=== PATIENT | female | born 1940 | race Caucasian/White ===

== ENCOUNTER → 2024-06-12 15:41 | Outpatient (REF) | payer MEDICARE, SELFPAY | LOC: PAVMRI 15:41 | PROVIDERS: ATTENDING PHYSICIAN Internal Medicine | DX: G89.29 Other chronic pain (principal); M54.40 Lumbago with sciatica, unspecified side; M51.26 Other intervertebral disc displacement, lumbar region; M48.061 Spinal stenosis, lumbar region without neurogenic claudication | CPT/HCPCS: 72148 ==

== ENCOUNTER → 2024-07-11 12:41 | Outpatient (REF) | payer MEDICARE, SELFPAY | LOC: PAVMRI 12:41 | PROVIDERS: ATTENDING PHYSICIAN Specialist; FAMILY PHYSICIAN Internal Medicine | DX: M54.12 Radiculopathy, cervical region (principal) | CPT/HCPCS: 72141 ==

== ENCOUNTER 2025-09-25 12:02 | Emergency (ER) | payer MEDICARE, SELFPAY ==
[2025-09-25 12:13] VITALS: BP 144/89
[2025-09-25 14:50] VITALS: BP 138/61
--- NOTE | 2025-09-25 15:03 | ED.GENMED ---
History of Present Illness
General
Chief Complaint: Fall
Source: patient
Time Seen by Provider: 09/25/25 13:41
History of Present Illness
History of Present Illness:
85-year-old female presents to the emergency room for evaluation after suffering a fall. Patient states she has spinal stenosis which makes it difficult for her to ambulate. She typically uses a walker or rollator. She has had 2 falls recently.
About 5 days ago she fell when the rollator fell over while she was getting up. She has pain on the right side from this fall including right lateral chest, right shoulder and right head. She had a fall earlier today where she slid down off of the
edge of the bed. No loss of consciousness with these falls. She does not take any oral anticoagulants. Patient lives in an apartment and has caregivers come to her 3 days a week. Her resides in a half-way. She is contemplated in
assisted living but feels she would not be able to take advantage of much of the things they offer there. She does not believe she requires the level of care of a half-way. She believes her current living situation is most appropriate for her.
Phy Exam
Physical Exam
Physical Exam:
General: Awake, Alert, Oriented X3. No acute distress.
Vitals: unremarkable
Head: Atraumatic
Eyes: Pupils equal, EOMI
Throat: Airway intact, no exudates
Neck: Trachea midline, but diffusely tender to palpation, no point tenderness
Lungs: Clear and equal b/l
Heart: Regular rate, no murmurs
Abd: Soft, Nontender, No pulsatile mass
Neuro: No focal weakness
Skin: Warm, dry, no rash
Extremities: pulses equal b/l, no edema. Ecchymosis noted right shoulder. Full range of motion of the shoulder. Patient has some diffuse tenderness along the right lateral chest wall. No point tenderness. No subcutaneous emphysema.
Course
Orders/Labs/Results
Orders:
Orders
09/25/25 12:19
CT Cervical Spine W/o Iv Contr Urgent
Comment:
Reason For Exam: fall, right sided head strike, neck soreness
CT Head W/o Iv Contrast Urgent
Comment:
Reason For Exam: fall right sided head strike
Ribs, Right 3 View W/PA Chest [CR Ribs-right 3 Vw W/pa Chest*] Urgent
Comment:
Reason For Exam: fall, right rib pain
09/25/25 15:00
Case Management Consult ONCE
Case Management Consult: Discharge Planning
09/25/25 15:11
Physical Therapy Consult [Pt Eval And Treat] Urgent
Activity Level: As Tolerated
Vital Signs
Initial and Last Documented VS:
Initial Vital Signs
Temp Pulse Resp BP Pulse Ox
98.3 F 98 18 144/89 96
09/25/25 12:13 09/25/25 12:13 09/25/25 12:13 09/25/25 12:13 09/25/25 12:13
Last Documented Vital Signs
Temp Pulse Resp BP Pulse Ox
98.3 F 89 16 137/78 98
09/25/25 12:13 09/25/25 16:04 09/25/25 16:04 09/25/25 16:04 09/25/25 16:04
MDM/Problems Addressed
Differential Diagnosis Includes:
Closed head injury, rib fracture, pneumothorax, contusion
MDM/Problems Addressed:
Patient presents with right sided pain after a couple falls recently. Patient has a history of mental stenosis making it very difficult for get around. Patient was evaluated by case management. She declines any permanent type placement. We were
able to arrange for visiting nurses and home PT. There is no injury which would preclude her from being discharged home.
*Radiology
Radiology exam reviewed: radiology read reviewed
*Pulse Oximetry
SaO2: 94
Oxygen Mode of Delivery: Room air
Patient hypoxic: no
*Critical Care Note
Total Time (30-74mins, 75-104mins- exclusive of procedures): Not Applicable
Patient Management
Social determinants of health affecting care: Living situation
ED Attending Note
-
Portions of this chart may have been created with voice recognition software.� Occasional wrong word or��sound alike� substitutions may have occurred due to the inherent limitations of voice recognition software.
Discharge Plan
Departure
Patient Disposition: Home (Routine Discharge)
Date of Disposition: 09/25/25
Time of Disposition: 15:52
Patient with high blood pressure during this ER visit?: Yes
Condition: Good
Discharge Problem:
Fall, Chest wall contusion, Spinal stenosis
Instructions: Head Injury in Adults (DC), Contusion (DC), Preventing falls in adults
Prescriptions:
No Action
levothyroxine 100 MCG tablet
100 mcg PO DAILY AT 0700
atenolol 50 MG tablet
75 mg PO DAILY
Patient Comments:
pt takes one and a half pills.
alprazolam 0.25 MG tablet
0.25 mg PO HSPRN PRN (Reason: sleeping)
Patient Comments:
for sleeping
fluoxetine [Prozac] 40 MG capsule
40 mg PO DAILY
fluoxetine 20 MG capsule
20 mg PO DAILY
fluocinolone acetonide oil [DermOtic Oil] 20 ML drops
1 drp RIGHT EAR PRN PRN (Reason: irritation)
esomeprazole magnesium [Nexium] 20 MG capsule,delayed release(DR/EC)
20 mg PO DAILY
omeprazole magnesium [Prilosec OTC] 20 mg Tablet,Delayed Release (Dr/Ec)
20 mg PO DAILY
atorvastatin [Lipitor] 10 mg Tablet
10 mg PO DAILY
mupirocin 2 % ointment
1 applic topical BID Qty: 1 0RF
Patient Comments:
last dose was this am, 04/21/23
aspirin 325 mg tablet
325 mg PO DAILY Qty: 1 0RF
Rx Instructions:
Take with food
docusate sodium [Colace] 100 mg capsule
100 mg PO BID Qty: 1 0RF
meloxicam 15 mg tablet
15 mg PO DAILY Qty: 14 0RF
Rx Instructions:
take with food
post-op
magnesium hydroxide [Milk of Magnesia] 400 mg/5 mL suspension
30 ml PO HS PRN (Reason: Constipation) Qty: 1 0RF
gabapentin 300 mg capsule
300 mg PO HS Qty: 10 0RF
sennosides [Senokot] 8.6 mg tablet
17.2 mg PO BID Qty: 2 0RF
oxycodone 5 mg tablet
5 - 10 mg PO Q6HPRN PRN (Reason: 1 tab moderate-2 tabs severe pain) Qty: 30 0RF
Rx Instructions:
Dx surgery
ongoing therapy
Post-op use
acetaminophen [Tylenol] 325 mg capsule
650 mg PO QID Qty: 2 0RF
Referrals:
Iraj Moran MD [Family Provider, Otology]
Interventions
Interventions:
*Risk Screen - Suicide Last Done: 09/25/25 12:13
*General Assessment Last Done: 09/25/25 12:13
*Neglect/Abuse Screening Last Done: 09/25/25 12:18
*ED COVID-19 Vaccine History Last Done: 09/25/25 16:04
*ED Influenza Vaccine History Last Done: 09/25/25 16:04
[facility] Fall Risk Assessment Tool Last Done: 09/25/25 16:04
*Nursing Disposition Last Done: 09/25/25 16:04
ED-Musculoskeletal Assessment Last Done: 09/25/25 16:04
ED- Neurological Assessment Last Done: 09/25/25 16:04
ED-Skin Assessment Last Done: 09/25/25 16:04
Discharge Date and Time
Discharge Date/Time: 09/25/25 16:04
Print Language: HEBREW
[2025-09-25 16:04] VITALS: BP 137/78
--- NOTE | 2025-09-26 08:26 | VNURNOTE ---
Chart reviewed. [facility] will accept pt for homecare svc. Referral sent to [facility] via [employer].
== END 2025-09-25 16:04 | disposition home or self-care (01) ==
LOC: EMR 12:02
PROVIDERS: EMERGENCY PHYSICIAN Emergency Medicine; FAMILY PHYSICIAN Otolaryngology
DX: S20.211A Contusion of right front wall of thorax, initial encounter (principal); S40.011A Contusion of right shoulder, initial encounter; W06.XXXA Fall from bed, initial encounter; M48.00 Spinal stenosis, site unspecified
CPT/HCPCS: 99284; 70450; 71101; 72125

== ENCOUNTER 2025-10-08 15:22 | Inpatient (IN) | payer MEDICARE, SELFPAY ==
[2025-10-07] VITALS (10 sets, daily range): BP systolic 98–165; BP diastolic 66–86; PULSE 67; O2SAT 97; BMI 28.0
--- NOTE | 2025-10-07 09:28 | ED.GENMED ---
History of Present Illness
General
Chief Complaint: Fall
Source: patient
Exam Limitations: none
Time Seen by Provider: 10/07/25 09:18
Nursing documentation reviewed up to this point in time: agreed with
History of Present Illness
History of Present Illness:
see MDM
Phy Exam
Physical Exam
Physical Exam:
GENERAL: Alert , in no apparent distress
HEAD: NCAT
NECK: no midline tenderness, active ROM intact, no paraspinal muscle tenderness;
EYE: pupils equal and reactive, EOMs intact.; blind R eye
ENT: o/p clr, mmm. no hemotympanum
CARDIAC: Regular rate and rhythm, no edema
LUNGS: Clear breath sounds bilaterally, no acute respiratory distress, no wheezes/rales/rhonchi
ABDOMEN: Soft, without focal tenderness, no r/g, no cvat
NEUROLOGICAL: Alert and oriented, no focal neuro deficits, CN intact, 4+/5 strength, sensation intact
SKIN: Warm and dry,
MUSCULOSKELETAL: No edema, well perfused.
PSYCH: Normal and appropriate interaction.
Course
Orders/Labs/Results
Orders:
Orders
10/07/25 09:17
Case Management Consult ONCE
Case Management Consult: Discharge Planning
10/07/25 09:39
Complete Blood Count/With Diff Urgent
10/07/25 10:05
Pt Eval And Treat Urgent
Activity Level: Ambulate
10/07/25 11:17
Comprehensive Metabolic Panel Urgent
Abnormal Lab Results
10/07/25
09:39
RDW 15.0 H %
(11.5-14.5)
Absolute Monos (auto) 1.0 H 10^3/uL
(0.1-0.6)
Lymphocytes % 13.4 L %
(20.5-51.1)
Monocytes % 11.8 H %
(1.7-9.3)
10/07/25 09:39
Vital Signs
Initial and Last Documented VS:
Initial Vital Signs
Temp Pulse Resp BP Pulse Ox
37.0 C 98 18 137/71 93
10/07/25 09:19 10/07/25 09:19 10/07/25 09:19 10/07/25 09:19 10/07/25 09:19
Last Documented Vital Signs
Temp Pulse Resp BP Pulse Ox
37.0 C 92 18 138/66 97
10/07/25 09:19 10/07/25 10:45 10/07/25 10:45 10/07/25 10:00 10/07/25 10:45
MDM/Problems Addressed
Differential Diagnosis Includes:
see MDM
MDM/Problems Addressed:
Note:
CHIEF COMPLAINT(S)
- Recurrent falls
HISTORY OF PRESENT ILLNESS
The patient is an 85-year-old female with a history of spinal stenosis presenting with recurrent falls. She reports experiencing four falls in the span of five weeks, with two occurring within this period and the most recent fall happening this
morning. She attributes the falls to her spinal stenosis, which has affected her ability to walk. The spinal stenosis involves her entire spine from the neck to the lumbar region. Her ambulation is currently assisted with a rollator, walker, and
wheelchair. She lives alone but has noted plans to change this, stating, 'Unfortunately, yes, but that is going to change now that Brittany been falling so much.' She is contemplating alternative living arrangements, preferring not to enter an assisted
living or [place] facility due to personal reasons and financial constraints. Her husbands end-of-life care needs have impacted her living situation.
The patient also reports visual impairment, with complete loss in her right eye and diminishing vision in her left eye caused by macular degeneration, which may contribute to her balance issues. She experiences nocturnal incontinence, requiring her
to get up multiple times each night, which further complicates her risk of falls in semi-dark conditions, despite leaving lights on. She did not sustain significant injuries, but notes bruising from previous incidents. Her son facilitated her
transport to the hospital via ambulance after determining she could no longer safely live alone.
ADDITIONAL HISTORY OBTAINED FROM SOURCES OTHER THAN THE PATIENT
The patients son reported that they have been facing financial constraints and expressed interest in exploring student assistance programs or other affordable care solutions.
SOCIAL DETERMINANTS AFFECTING HEALTH
The patient is currently living alone, which poses increased risks given her recent falls and visual impairment. Financial constraints are significant, as noted by her son, impacting their ability to secure paid in-home care or assisted living.
Additionally, ongoing stress related to her husbands health and lack of family support affects her living situation.
SOCIAL HISTORY
The patient has a history of living alone, but her situation is in transition due to recent falls and considerations for alternative living arrangements.
PHYSICAL EXAM
- Visual: Right eye completely impaired, left eye with diminishing vision.
- Musculoskeletal: Visible bruising reported on body from previous falls.
- Neurological: No significant head trauma noted from falls.
PROBLEM LIST
Acute:
- Recurrent falls
- Visual impairment
Chronic:
- Spinal stenosis
- Macular degeneration
PLAN
- Consideration of alternative living arrangements for the patient that accommodate her medical needs while addressing financial constraints.
- Referral to Physical Therapy and Occupational Therapy for fall prevention strategies.
- Coordination with social media director for assistance in securing appropriate living arrangements and care.
- Assessment by Physical Therapy or Occupational Therapy for mobility aids and home safety evaluation to reduce fall risk.
DIFFERENTIAL DIAGNOSIS
The Differential Diagnosis includes, in no particular order and is not limited to:
- Spinal stenosis related balance issues
- Macular degeneration affecting vision and balance
- Orthostatic hypotension
- Vestibular dysfunction
- Medication side effects
- Neuropathy
- Musculoskeletal weakness
- Cognitive impairment
- Environmental hazards
- Multi-factorial geriatric syndrome
85-year-old female with a history of severe spinal stenosis causing ambulatory dysfunction at baseline requiring a rollator and sometimes a wheelchair whose is more recently in hospice and likely will pass soon, living alone who presents
after multiple falls. The most recent fall was this morning. Sounds more like she slid to the ground and had no injuries but was able to scoot herself after some time to her phone to call her son who lives above her. The son has been worried
about patient living alone and is considered options but has not been able to place her in any kind of assisted living. She reports about 5 falls over the last several weeks. She has not had any significant injuries from these falls. Patient
recognizes she is too weak to live alone. She is requesting to be placed. She is not having any infectious symptoms, fever or chills, cough or cold, shortness of breath, chest pain, headache, focal weakness.
Patient was seen by case management and physical therapy. Physical therapy recommended inpatient rehab, it appears that her home PT also recommended this. Unfortunately she cannot be placed directly from the emergency department. She will require
admission
*Pulse Oximetry
SaO2: 93
Oxygen Mode of Delivery: Room air
Patient hypoxic: no (97)
*Critical Care Note
Total Time (30-74mins, 75-104mins- exclusive of procedures): Not Applicable
ED Attending Note
-
Portions of this chart may have been created with voice recognition software.� Occasional wrong word or��sound alike� substitutions may have occurred due to the inherent limitations of voice recognition software.
Discharge Plan
Departure
Prescriptions:
No Action
levothyroxine 100 MCG tablet
100 mcg PO DAILY AT 0700
atenolol 50 MG tablet
75 mg PO DAILY
Patient Comments:
pt takes one and a half pills.
alprazolam 0.25 MG tablet
0.25 mg PO HSPRN PRN (Reason: sleeping)
Patient Comments:
for sleeping
fluoxetine [Prozac] 40 MG capsule
40 mg PO DAILY
fluoxetine 20 MG capsule
20 mg PO DAILY
fluocinolone acetonide oil [DermOtic Oil] 20 ML drops
1 drp RIGHT EAR PRN PRN (Reason: irritation)
esomeprazole magnesium [Nexium] 20 MG capsule,delayed release(DR/EC)
20 mg PO DAILY
omeprazole magnesium [Prilosec OTC] 20 mg Tablet,Delayed Release (Dr/Ec)
20 mg PO DAILY
atorvastatin [Lipitor] 10 mg Tablet
10 mg PO DAILY
mupirocin 2 % ointment
1 applic topical BID Qty: 1 0RF
Patient Comments:
last dose was this am, 04/21/23
aspirin 325 mg tablet
325 mg PO DAILY Qty: 1 0RF
Rx Instructions:
Take with food
docusate sodium [Colace] 100 mg capsule
100 mg PO BID Qty: 1 0RF
meloxicam 15 mg tablet
15 mg PO DAILY Qty: 14 0RF
Rx Instructions:
take with food
post-op
magnesium hydroxide [Milk of Magnesia] 400 mg/5 mL suspension
30 ml PO HS PRN (Reason: Constipation) Qty: 1 0RF
gabapentin 300 mg capsule
300 mg PO HS Qty: 10 0RF
sennosides [Senokot] 8.6 mg tablet
17.2 mg PO BID Qty: 2 0RF
oxycodone 5 mg tablet
5 - 10 mg PO Q6HPRN PRN (Reason: 1 tab moderate-2 tabs severe pain) Qty: 30 0RF
Rx Instructions:
Dx surgery
ongoing therapy
Post-op use
acetaminophen [Tylenol] 325 mg capsule
650 mg PO QID Qty: 2 0RF
Referrals:
Musa Rowland MD [Family Provider, Internal Medicine]
Interventions
Interventions:
*General Assessment Last Done: 10/07/25 09:19
*Neglect/Abuse Screening Last Done: 10/07/25 09:19
*ED COVID-19 Vaccine History Last Done: 10/07/25 09:19
*ED Influenza Vaccine History Last Done: 10/07/25 09:19
[facility] Fall Risk Assessment Tool Last Done: 10/07/25 09:19
*Risk Screen - Suicide (C-SSRS) Last Done: 10/07/25 09:19
ED-Musculoskeletal Assessment Last Done: 10/07/25 09:19
ED- Neurological Assessment Last Done: 10/07/25 09:19
ED-Skin Assessment Last Done: 10/07/25 09:19
Discharge Date and Time
Print Language: SYRIAC
[2025-10-07 09:58] LABS: Hematocrit 39.7 % (37.0-47.0); Hemoglobin 13.4 g/dL (12.0-16.0); Mean Corp Hgb Conc. 33.8 g/dL (33.0-37.0); Mean Corpuscular Volume 84.1 fL (81.0-99.0); Nucleated Red Blood Cells % 0 %; Platelet Count 271 10^3/uL (130-400); Red Cell Dist. Width 15.0 % (11.5-14.5)
--- NOTE | 2025-10-07 10:04 | CM ---
Addendum entered by Ciro Ochoa 10/07/25 11:28:
Spoke with [facility] and she is not a part of their waiver program
Original Note:
Consult received. Chart reviewed
Spoke with pt at ED bedside
Spoke with son Singh on the phone
Pt lives alone in an apartment in [place]
1st floor no ALAN
DME rollator
Fell x3 today
Per son, her caregiver/ is currently in [facility] rehab under hospice?
They had to sell their house to fund his stay there and in the process of applying for MA?
Pt PCP and home care attendant thought she would need 24 hour supervision for safety
PCP Ruben Stanley
[facility] in [place]
[facility]
no hx of SNF
DCP ; son would like to see if she can be transferred to SNF for short term?
Discussed with ED team
CM will continue to follow up for any dcp needs
[2025-10-07 11:49] LABS: ALT (SGPT) 14 U/L (0-35); AST (SGOT) 24 U/L (14-36); Albumin 4.2 g/dl (3.5-5.0); Alkaline Phosphatase 100 U/L (38-126); Blood Urea Nitrogen 15 mg/dl (7-17); Calcium 9.4 mg/dl (8.4-10.2); Carbon Dioxide 26 mmol/L (22-30); Chloride 105 mmol/L (98-107); Estimated Creatinine Clearance 67 ml/min; Glucose 105 mg/dl (70-99); Potassium 3.8 mmol/L (3.5-5.1); Sodium 136 mmol/L (135-145); Total Protein 7.2 g/dl (6.3-8.2); eGFR > 60.00
--- NOTE | 2025-10-07 11:52 | HPS.HSE ---
Addendum entered and electronically signed by Rhys Lennon MD 10/07/25 14:39:
Medication reconcilled
Per Pharmacist :
- the pharmacy hasn't filled atenolol, atorvastatin, gabapentin, esomeprazole, fluoxetine, or oxycodone in at least 2 years.
- Cancel the medication orders
per pharmacy and the patient gets 0.5mg daily
- change to 0.5mg daily
Original Note:
Family Physician
-
Family Physician: Ruben Rowland
Chief Complaint
-
recurrent falls
History of Present Illness
HPI
85F lives alone
PHX significant for severe spinal stenosis causing chr ambulatory dysfunction at baseline requiring a rollator/a wheelchair - - is more recently in hospice for end of life
- pw multiple falls- recent fall was this morning. eports about 5 falls over the last several weeks.
- HX suggested slid to the ground and had no injuries but was able to scoot herself after some time to her phone to call her son who lives above her.
- The son consernd with patient living alone and is considered options but has not been able to place her in any kind of assisted living.
- too weak to live alone.
- not having any infectious symptoms, fever or chills, cough or cold, shortness of breath, chest pain, headache, focal weakness.
- seen by CRM and PT
- PT ecommended inpatient rehab
- Unfortunately she cannot be placed directly from the emergency department.
Medical History
Past Medical History
Past Medical History: Reports Other (see below)
Additional Past Medical History:
PAST MEDICAL HISTORY:
1. Osteoarthritis R TKA 2020..
2. Hypertension.
3. Hyperlipidemia.
4. Frequent PVCs and nonsustained ventricular tachycardia, rate
� � controlled with Atenolol.
5. Left anterior fascicular block.
6. Coronary artery disease, non-obstructive and medically managed.
7. Right cerebellar stroke, 2017, with residual dizziness.
8. Ambulatory dysfunction.
9. GERD.
10. Diverticulosis.
11. Irritable bowel syndrome.
12. Hyperthyroidism status post radioactive iodine; currently hypothyroid.
13. Lumbar stenosis.
14. Overactive bladder.
15. Remote tobacco abuse.
16. Obesity BMI 35.1.
17. Macular degeneration with diminished vision.
18. Depression.
19. Anxiety.
20. Insomnia.
21. Hypercalcemia.
22. MRSA + nasal screen 02/25/21.
23. Prediabetes.
Past Surgical History: Reports Other (see below)
Additional Past Surgical History:
1. Partial hysterectomy.
2. Cystocele repair.
3. Bladder suspension x3.
4. Left foot surgery x3.
5. .
6. Tonsillectomy.
7. Appendectomy.
8. Left cataract extraction.
9. R TKA.
Social History
Tobacco: Former Smoker
Alcohol: Occasional
Family History
Family History: Not pertinent
Allergies / Home Medications
Allergies reflects when Allergies were last updated in [employer].
Home Medications with original date entered in [employer]
Allergy/Medication List:
MEDICATIONS:
1. Esomeprazole magnesium 20 mg p.o. daily.
2. Aspirin 81 mg p.o. daily.
3. Acetaminophen 1000 mg p.o. every 6 hours as needed.
4. Alprazolam 0.25 mg p.o. hour of sleep as needed.
5. Calcium carbonate 500 mg p.o. daily.
6. Vitamin B12 2500 mcg p.o. daily.
7. Vitamin D3 500 mg p.o. daily.
8. Vitamin C 500 mg p.o. daily.
9. Prilosec 1 tablet p.o. daily.
10. Lactobacillus acidophilus 1 tablet p.o. daily.
11. DermOtic 1 drop right ear daily as needed.
12. Atenolol 75 mg p.o. daily.
13. Levothyroxine 100 mcg p.o. daily.
14. Fluoxetine HCl 60 mg p.o. daily.
�
ALLERGIES:� No known allergies.
Review of Systems
-
Constitutional: Reports See HPI
EENT: Reports No Symptoms
Respiratory: Reports No Symptoms
Cardiac: Reports No Symptoms
Abdomen/GI: Reports No Symptoms
: Reports No Symptoms
Musculoskeletal: Reports Other (general weakness )
Skin: Reports No Symptoms
Endocrine: Reports No Symptoms
Hematologic/Lymphatic: Reports No Symptoms
Psych: Reports No Symptoms
Physical Exam
Vital Signs
Vital Signs
Temp Pulse Resp BP Pulse Ox
98.6 F 89 21 151/76 93
10/07/25 09:19 10/07/25 11:30 10/07/25 11:30 10/07/25 11:06 10/07/25 11:30
Physical Exam
General: Well Developed and Well Nourished
HEENT: Other (visual impairment)
Respiratory: Clear
Cardiac: Regular Rhythm
GI: Soft, Non Tender and Normal Bowel Sounds
Neuro: Awake, Alert, No Motor Deficits and Other (some cognitive deficits pertaining to comprehension and memory, +balance and gait disturbance)
Laboratory Results
-
10/07/25 09:39
10/07/25 11:17
Laboratory Results
Total Bilirubin 1.3 mg/dl (0.2-1.3) 10/07/25 11:17
AST 24 U/L (14-36) 10/07/25 11:17
ALT 14 U/L (0-35) 10/07/25 11:17
Alkaline Phosphatase 100 U/L (38-126) 10/07/25 11:17
Data Reviewed
-
Lab Data: Labs Reviewed by me
Old Records: Reviewed
Impression/Plan
-
Vital Signs
Temp Pulse Resp BP Pulse Ox
98.6 F 89 21 151/76 93
10/07/25 09:19 10/07/25 11:30 10/07/25 11:30 10/07/25 11:06 10/07/25 11:30
Abnormal Lab Results
10/07/25 10/07/25
09:39 11:17
RDW 15.0 H
Absolute Monos (auto) 1.0 H
Lymphocytes % 13.4 L
Monocytes % 11.8 H
Glucose 105 H
Ribs and CXR 09/25/25
Unremarkable left ribs
Pulmonary findings suggest changes of COPD.
HCT 09/25/25
There are moderate changes of cortical atrophy and chronic ischemic disease.
Cerebellar encephalomalacia is consistent with an old infarct, and was noted on previous MRI
Last admission to PMR service : 04/21/2023 - 04/22/2023
DICTATED BY: Mary Briggs PA-C for Odilon Jordan MD
DISCHARGE DIAGNOSES:
1. Osteoarthritis, status post left total knee arthroplasty.
2. Deep venous thrombosis prophylaxis, aspirin.
3. Nonsustained ventricular tachycardia.
4. History of cerebrovascular accident.
5. Postoperative confusion.
ASSESSMENT & PLAN
Pending Rx reconciliation
Multiple falls without bony injury due to multifactorial origins
- deconditioning with generalized weakness and debility + sensory deprivation/ visual impairment + spinal stenosis + chr ambulatory dysfunction + social stressors +cognitive decline )
- currently living alone
- Financial constraints
- ongoing stress related to her husbands health and lack of family support affects her living situation.
- Visual: Right eye completely impaired, left eye with diminishing vision due to macular degeneration
- Visible bruising reported on body from previous falls.
- No significant head trauma noted from falls
- Spinal stenosis
- Macular degeneration
- PT suggest IP Rehab ( SNF vs subacute )
Chr Dxes
Osteoarthritis R TKA 2020..
Hypertension.
Hyperlipidemia.
Frequent PVCs and nonsustained ventricular tachycardia, rate� controlled with Atenolol.
Left anterior fascicular block.
Coronary artery disease, non-obstructive and medically managed.
Right cerebellar stroke, 2017, with residual dizziness.
Ambulatory dysfunction.
GERD.
Diverticulosis.
Irritable bowel syndrome.
Hyperthyroidism status post radioactive iodine; currently hypothyroid.
Lumbar stenosis.
Overactive bladder.
Remote tobacco abuse.
Obesity BMI 35.1.
Macular degeneration with diminished vision.
Depression.
Anxiety.
Insomnia.
Hypercalcemia.
MRSA + nasal screen 02/25/21.
Prediabetes.
DVT Px: SQH
Full code
OBS MS
--- NOTE | 2025-10-07 17:00 | PTCARENOTE ---
Patient arrived from ED via stretcher--parts puller from stretcher to hospital bed. AAO x 3. [place]. Blind in right eye, legally blind in left eye. Patient anxious in regard to falling. Patient incontinent of urine--Q 2 hour turns. Skin check completed.
Bilateral heels soft and boggy. Bilateral heel foams placed, heels elevated. All patient needs met. Bed alarm placed due to high fall risk score. Call bowen and personal belongings within reach.
[2025-10-07] MEDS: COLACE PO ×2 (20:07→20:18)
[2025-10-07] MEDS: HEPARIN 5000 UNITS SC (20:07)
[2025-10-07] MEDS: XANAX 0.5 MG PO (20:12)
[2025-10-08] MEDS: SYNTHROID 100 MCG PO (05:34)
[2025-10-08 06:00] VITALS: BMI 28.3
[2025-10-08 07:10] VITALS: BP 170/76
[2025-10-08] MEDS: TYLENOL 650 MG PO (07:35)
[2025-10-08] MEDS: HEPARIN 5000 UNITS SC ×2 (07:35→20:12)
[2025-10-08] MEDS: COLACE PO ×2 (07:35→20:12)
[2025-10-08 07:52] LABS: Hematocrit 38.6 % (37.0-47.0); Hemoglobin 12.8 g/dL (12.0-16.0); Mean Corp Hgb Conc. 33.2 g/dL (33.0-37.0); Mean Corpuscular Volume 85.6 fL (81.0-99.0); Platelet Count 252 10^3/uL (130-400); Red Cell Dist. Width 15.2 % (11.5-14.5)
--- NOTE | 2025-10-08 07:52 | W.PN.HOSP.TC ---
Today's Communication/Plan
-
Continue pain management
PT/OT
SNF placement
Assessment / Plan
Assessment / Plan
85yoF PMH macular degeneration with impaired eyesight, spinal stenosis presenting from fall at home in setting of recurrent falls.
AFVSS, elevated HTN with pain. Labs WNL. TSH 4.45. Pt reports multiple falls in recent weeks with most recent ER visit 2 weeks ago. Son in the room reports she has had a hard time adjusting since her was placed in SNF and now is hospice,
though family is not relaying that he is in hospice to pt. Son also described that pt does not take her medications appropriately. Recently set up visiting nurse to help with medication where they found out she is not taking her medications. New
cough vs atelectasis in setting of trunk pain from falls. Encourage IS.
Son is POA, requested updates if he is not there
#ambulatory dysfunction
#macular degeneration
# spinal stenosis
- Repeated falls at home
- PT/OT eval and tx
#cough
- Encourage incentive spirometer
#HTN
- restart atenolol dose pt was supposed to be taking with hold parameters
#hypothyroidism
- continue home medication
Anticipated Discharge: 24 - 48 hours
Subjective/Interval History
-
Date of Service: October 08, 2025
Pt reports feeling okay today with mild cough that started 2 weeks ago. She reports falling many times recently, attributing it to what she believes is related to spinal stenosis. Hx stroke 2017 with residual incontinence; per chart, cerebellar
stroke with residual balance issues. Pt describes losing eyesight in R eye and low reduced vision in the L from macular degeneration. She denies having increased falls from lack of vision. She lives alone in first floor apartment. She states she
does not have trouble seeing things but has been losing her balance rather than tripping.
Objective Data
-
Labs:
Laboratory Results
10/08/25 10/08/25
06:37 06:38
WBC Pending
Hgb Pending
Hct Pending
Plt Count Pending
Sodium Pending
Potassium Pending
Chloride Pending
Carbon Dioxide Pending
BUN Pending
Creatinine Pending
Glucose Pending
Calcium Pending
Vital Signs:
Vital Signs
Temp Pulse Resp BP Pulse Ox
99.1 F 99 16 165/81 93
10/08/25 03:14 10/07/25 23:21 10/07/25 23:21 10/07/25 23:21 10/07/25 23:21
I&O
10/07/25 10/08/25 10/09/25
06:59 06:59 06:59
Intake Total 200 / 200
Balance 200 / 200
Review of Systems
-
History Source: Patient
All other systems: Reviewed and negative
Physical Exam
-
General: No Apparent Distress and Comfortable
HEENT: Normocephalic, Atraumatic and Moist Mucous Membranes
Respiratory: Crackles (bibasilar) and Non Labored Respirations
Cardiac: Regular Rhythm and S1/S2
GI: Soft, Nontender and Nondistended
Musculoskeletal: No Edema and Other (mild tenderness to R ribs, pt reports healing bruises along R trunk from prior fall)
Skin: Warm and Dry
Neuro: Awake, Alert, Oriented (location and month), Nonfocal/Grossly Intact and Central Nerve's Intact (poor eyesight, recognizes son)
Psych: Confused (mildly)
[2025-10-08 08:43] LABS: Blood Urea Nitrogen 15 mg/dl (7-17); Calcium 9.1 mg/dl (8.4-10.2); Carbon Dioxide 21 mmol/L (22-30); Chloride 106 mmol/L (98-107); Estimated Creatinine Clearance 78 ml/min; Glucose 110 mg/dl (70-99); Potassium 3.8 mmol/L (3.5-5.1); Sodium 135 mmol/L (135-145); eGFR > 60.00
[2025-10-08 09:08] LABS: TSH 4.45 uIU/ml (0.47-4.68)
[2025-10-08] MEDS: TENORMIN 50 MG PO (15:09)
[2025-10-08 15:47] VITALS: BP 123/61
--- NOTE | 2025-10-08 17:38 | CM ---
CM spoke with patient's son, Singh re d/c plan. Patient lives alone, and son states that she is not safe to return home. He was placement for for her at [facility] where patient's is currently under hospice care. Referral to
[facility] was placed in [facility].
D/c plan: SNF
[2025-10-08] MEDS: XANAX 0.5 MG PO (20:12)
[2025-10-08 22:53] VITALS: BP 123/65
[2025-10-09] MEDS: TYLENOL 650 MG PO ×2 (01:47→08:42)
[2025-10-09] MEDS: SYNTHROID 100 MCG PO (05:38)
[2025-10-09 05:44] VITALS: BMI 28.3
[2025-10-09 07:10] VITALS: BP 113/67
--- NOTE | 2025-10-09 07:36 | W.PN.HOSP.TC ---
Today's Communication/Plan
-
Covid +
Paxlovid and supportive measures
Assessment / Plan
Assessment / Plan
85yoF PMH macular degeneration with impaired eyesight, spinal stenosis presenting from fall at home in setting of recurrent falls.
AFVSS, elevated HTN with pain. Labs WNL. TSH 4.45. Pt reports multiple falls in recent weeks with most recent ER visit 2 weeks ago. Son in the room reports she has had a hard time adjusting since her was placed in SNF and now is hospice,
though family is not relaying that he is in hospice to pt. Son also described that pt does not take her medications appropriately. Recently set up visiting nurse to help with medication where they found out she is not taking her medications. New
cough vs atelectasis in setting of trunk pain from falls. Encourage IS.
Son is POA, requested updates if he is not there
AFVSS with 1 episode fever voernight 100.5. Pt reports new viral prodrome concerning for covid/flu vs common cold. Plan for supportive measures with as needed robutssin DM, nasal saline with covid/flu swabs. Tested positive for covid. Started on
paxlovid.
#ambulatory dysfunction
#macular degeneration
# spinal stenosis
- Repeated falls at home
- PT/OT eval and tx
#cough
- Encourage incentive spirometer
- covid/flu swabs
- robutssin DM, nasal saline
#HTN
- restart atenolol dose pt was supposed to be taking with hold parameters
#hypothyroidism
- continue home medication
Anticipated Discharge: Within 24 hours
Subjective/Interval History
-
Date of Service: October 09, 2025
Pt reports feeling achy with dry cough and sinus congestion and bilateral leg pain unrelated to her fall. She reports her who she saw recently has pneumonia and is worried she caught something from him.
Objective Data
-
Vital Signs:
Vital Signs
Temp Pulse Resp BP Pulse Ox
99.2 F 71 16 123/65 93
10/09/25 02:47 10/08/25 22:53 10/08/25 22:53 10/08/25 22:53 10/08/25 22:53
I&O
10/08/25 10/09/25 10/10/25
06:59 06:59 06:59
Intake Total 200 / 200 800 / 800
Balance 200 / 200 800 / 800
Review of Systems
-
All other systems: Reviewed and negative (unless listed in HPI)
Physical Exam
-
General: No Apparent Distress and Comfortable
HEENT: Normocephalic, Atraumatic and Moist Mucous Membranes
Respiratory: Non Labored Respirations (coarse sounds )
Cardiac: Regular Rhythm and S1/S2
GI: Soft, Nontender and Nondistended
Musculoskeletal: No Edema
Skin: Warm and Dry
Neuro: AO x 3 and Nonfocal/Grossly Intact
Psych: Calm
[2025-10-09] MEDS: TENORMIN 50 MG PO (08:30)
[2025-10-09] MEDS: HEPARIN 5000 UNITS SC ×2 (08:31→19:09)
[2025-10-09] MEDS: COLACE 100 MG PO ×2 (08:31→19:09)
[2025-10-09 09:29] VITALS: BP 98/58; O2SAT 95
[2025-10-09 09:51] LABS: COVID-19 Antigen Positive (Negative)
[2025-10-09] MEDS: PAXLOVID 1 EACH PO ×2 (11:34→21:20)
[2025-10-09] MEDS: AYR SALINE NASAL GEL 1 APPLIC NASAL ×2 (11:34→19:10)
[2025-10-09 16:00] VITALS: BP 120/70
--- NOTE | 2025-10-09 16:27 | CM ---
Working on SNF placement for patient. Patient tested positive for COVID today. CM spoke with Admissions at [facility]. there is no available bed today, but [facility] [employer] [facility] is expecting beds to open up. Will need to follow up in the
am to see if they can accomodate patient. CM called son and provided update.
[2025-10-09] MEDS: FLUZONE HIGH-DOSE 2025-26 0.5 ML IM (17:11)
[2025-10-09] MEDS: XANAX 0.5 MG PO (21:20)
[2025-10-09 23:45] VITALS: BP 117/67
[2025-10-10] MEDS: SYNTHROID 100 MCG PO ×2 (06:16→08:22)
--- NOTE | 2025-10-10 07:19 | W.PN.HOSP.TC ---
Today's Communication/Plan
-
Pending placement
Assessment / Plan
Assessment / Plan
85yoF PMH macular degeneration with impaired eyesight, spinal stenosis presenting from fall at home in setting of recurrent falls.
AFVSS, elevated HTN with pain. Labs WNL. TSH 4.45. Pt reports multiple falls in recent weeks with most recent ER visit 2 weeks ago. Son in the room reports she has had a hard time adjusting since her was placed in SNF and now is hospice,
though family is not relaying that he is in hospice to pt. Son also described that pt does not take her medications appropriately. Recently set up visiting nurse to help with medication where they found out she is not taking her medications. New
cough vs atelectasis in setting of trunk pain from falls. Encourage IS.
Son is POA, requested updates if he is not there
AFVSS with 1 episode fever overnight 100.5. Pt reports new viral prodrome concerning for covid/flu vs common cold. Plan for supportive measures with as needed robutssin DM, nasal saline with covid/flu swabs. Tested positive for covid. Started on
paxlovid.
AFVSS. Continuing on paxlovid. Pending placement at [facility].
#ambulatory dysfunction
#macular degeneration
# spinal stenosis
- Repeated falls at home
- PT/OT eval and tx
#cough
- Encourage incentive spirometer
- covid/flu swabs
- robutssin DM, nasal saline
#HTN
- restart atenolol dose pt was supposed to be taking with hold parameters
#hypothyroidism
- continue home medication
Anticipated Discharge: Within 24 hours
Subjective/Interval History
-
Date of Service: October 10, 2025
Pt reports feeling overall unwell with covid symptoms of malaise. She reports her cough is tolerable except for brief coughing fits. She reports her worst pain is from 2 falls ago when she hit her trunk, but no acute pain from this fall currently.
Denies diarrhea or abdominal discomfort.
Objective Data
-
Vital Signs:
Vital Signs
Temp Pulse Resp BP Pulse Ox
98.6 F 72 16 117/67 93
10/09/25 23:45 10/09/25 23:45 10/09/25 23:45 10/09/25 23:45 10/09/25 23:45
I&O
10/09/25 10/10/25 10/11/25
06:59 06:59 06:59
Intake Total 800 / 800 290 / 290
Balance 800 / 800 290 / 290
Physical Exam
-
General: Well Developed, Well Nourished, No Apparent Distress and Comfortable
HEENT: Normocephalic, Atraumatic and Moist Mucous Membranes
Respiratory: Non Labored Respirations (coarse sounds, no focal crackles or wheezes)
Cardiac: Regular Rhythm and S1/S2
GI: Soft, Nontender and Nondistended
Musculoskeletal: No Edema
Skin: Warm and Dry
Neuro: Awake, Alert, Oriented, Nonfocal/Grossly Intact and Central Nerve's Intact (visual impairment at baseline with strabismus)
[2025-10-10 07:40] VITALS: BP 116/68
[2025-10-10] MEDS: COLACE 100 MG PO ×2 (08:06→20:21)
[2025-10-10] MEDS: HEPARIN 5000 UNITS SC ×2 (08:06→20:22)
[2025-10-10] MEDS: TENORMIN 50 MG PO (08:06)
[2025-10-10 08:34] LABS: Hematocrit 37.0 % (37.0-47.0); Hemoglobin 12.3 g/dL (12.0-16.0); Mean Corp Hgb Conc. 33.2 g/dL (33.0-37.0); Mean Corpuscular Volume 85.3 fL (81.0-99.0); Platelet Count 255 10^3/uL (130-400); Red Cell Dist. Width 15.2 % (11.5-14.5)
[2025-10-10] MEDS: PAXLOVID 1 EACH PO ×2 (09:07→20:24)
[2025-10-10 09:20] LABS: Blood Urea Nitrogen 17 mg/dl (7-17); Calcium 8.9 mg/dl (8.4-10.2); Carbon Dioxide 24 mmol/L (22-30); Chloride 107 mmol/L (98-107); Estimated Creatinine Clearance 67 ml/min; Glucose 88 mg/dl (70-99); Potassium 3.9 mmol/L (3.5-5.1); Sodium 137 mmol/L (135-145); eGFR > 60.00
[2025-10-10] MEDS: PROTONIX 20 MG PO (11:52)
--- NOTE | 2025-10-10 13:21 | CM ---
CM reviewed chart, patient Covid +.
Reviewed with liaison at [facility]- can accept patient tomorrow.
Phone call to patients son, Singh, left regarding d/c to SNF and scheduling transport.
Patient scheduled for 11:00 a.m. ambulance transport.
CM will continue to follow.
Plan; [facility], 10/11/25, 11:00 a.m. ambulance transport
[facility]
Report: [phone]
[2025-10-10 15:05] VITALS: BP 116/67
[2025-10-10] MEDS: XANAX 0.5 MG PO (20:21)
[2025-10-10 23:55] VITALS: BP 136/70
[2025-10-11] MEDS: SYNTHROID 100 MCG PO (06:13)
[2025-10-11 07:05] VITALS: BP 141/72
[2025-10-11] MEDS: TENORMIN 50 MG PO (08:33)
[2025-10-11] MEDS: COLACE 100 MG PO (08:33)
[2025-10-11] MEDS: PAXLOVID 1 EACH PO (08:34)
[2025-10-11] MEDS: HEPARIN 5000 UNITS SC (08:34)
--- NOTE | 2025-10-11 08:53 | W.PN.HOSP.TC ---
Today's Communication/Plan
-
DC today
Assessment / Plan
Assessment / Plan
85yoF PMH macular degeneration with impaired eyesight, spinal stenosis presenting from fall at home in setting of recurrent falls.
AFVSS, elevated HTN with pain. Labs WNL. TSH 4.45. Pt reports multiple falls in recent weeks with most recent ER visit 2 weeks ago. Son in the room reports she has had a hard time adjusting since her was placed in SNF and now is hospice,
though family is not relaying that he is in hospice to pt. Son also described that pt does not take her medications appropriately. Recently set up visiting nurse to help with medication where they found out she is not taking her medications. New
cough vs atelectasis in setting of trunk pain from falls. Encourage IS.
Son is POA, requested updates if he is not there
AFVSS with 1 episode fever overnight 100.5. Pt reports new viral prodrome concerning for covid/flu vs common cold. Plan for supportive measures with as needed robutssin DM, nasal saline with covid/flu swabs. Tested positive for covid. Started on
paxlovid.
AFVSS. Continuing on paxlovid 2 more days. Pending placement at [facility]. Pt feeling well.
#ambulatory dysfunction
#macular degeneration
# spinal stenosis
- Repeated falls at home
- PT/OT eval and tx
#cough
- Encourage incentive spirometer
- covid/flu swabs
- robutssin DM, nasal saline
#HTN
- restart atenolol dose pt was supposed to be taking with hold parameters
#hypothyroidism
- continue home medication
Anticipated Discharge: Today
Subjective/Interval History
-
Date of Service: October 11, 2025
Objective Data
-
Vital Signs:
Vital Signs
Temp Pulse Resp BP Pulse Ox
98.2 F 62 16 141/72 93
10/11/25 07:05 10/11/25 08:33 10/11/25 07:05 10/11/25 07:05 10/11/25 07:05
I&O
10/10/25 10/11/25 10/12/25
06:59 06:59 06:59
Intake Total 290 / 290 960 / 960
Balance 290 / 290 960 / 960
[2025-10-11 10:27] VITALS: BP 133/71
--- NOTE | 2025-10-11 12:18 | CM ---
Patient was discharged to [facility], today, 10/11/25 at 11:00 a.m. via ambulance transport which was arranged yesterday for transfer today.
[facility]
Report: [phone]
--- NOTE | 2025-10-11 14:05 | W.DCSUMMARY ---
Documented by User: Christen Sanchez MD, Resident 10/11/25 14:07
Discharge Summary
Discharge Data
Date of Admission: 10/08/25
Date of Discharge: 10/11/25
-
Pending Results: No
Hospital Course
85yoF PMH macular degeneration with impaired eyesight, spinal stenosis presenting from fall at home in setting of recurrent falls.
10/08/25 AFVSS, elevated HTN with pain. Labs WNL. TSH 4.45. Pt reports multiple falls in recent weeks with most recent ER visit 2 weeks ago. Son in the room reports she has had a hard time adjusting since her was placed in SNF and now is
hospice. Son also described that pt does not take her medications appropriately. Recently set up visiting nurse to help with medication where they found out she is not taking her medications. New cough vs atelectasis in setting of trunk pain from
falls. Encourage IS. Impaired vision at baseline due to macular degeneration with strabismus, though pt reports her eyesight is not the source of her falls rather her spinal stenosis. Restarted on atenolol and levothyroxine, prior home medications.
10/09/25 AFVSS with 1 episode fever overnight 100.5. Pt reports new viral prodrome concerning for covid/flu vs common cold. Plan for supportive measures with as needed robutssin DM, nasal saline with covid/flu swabs. Tested positive for covid.
Started on paxlovid. PT/OT recommend SNF.
10/10/25-10/11/25 AFVSS. Continuing on paxlovid and PT/OT.
Discharge Plan
-
Patient Disposition: Long-Term/SNF
Discharge Diagnosis/Procedures: Ambulatory Dysfunction
URI due to COVID
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
Condition: Fair
Diet: Low Cholesterol
Activity: With assistance and As tolerated
Driving Restrictions: Not until seen by your Dr
Bathing Restrictions: None
Blood Work: BMP and CBC in 5 to 7 days
Other Services: PT
Referrals:
Musa Rowland MD [Family Provider, Internal Medicine]
Additional Discharge Medication Instructions: Continue Paxlovid twice daily through the end of 10/13
Continue with Tylenol as needed for pain and Robitussin as needed for cough
Prescriptions:
New
atenolol 50 mg Tablet
50 mg PO DAILY 30 Days Qty: 30 0RF
Paxlovid 300 mg (150 mg x 2)-100 mg Tablets,Dose Pack
1 ea PO BID 4 Days Qty: 8 0RF
Continued
levothyroxine 100 MCG tablet
100 mcg PO DAILY AT 0700
aspirin 325 mg tablet
325 mg PO DAILY Qty: 1 0RF
Rx Instructions:
Take with food
docusate sodium [Colace] 100 mg capsule
100 mg PO BID Qty: 1 0RF
magnesium hydroxide [Milk of Magnesia] 400 mg/5 mL suspension
30 ml PO HS PRN (Reason: Constipation) Qty: 1 0RF
sennosides [Senokot] 8.6 mg tablet
17.2 mg PO BID Qty: 2 0RF
alprazolam 0.5 mg Tablet
0.5 mg PO DAILY
acetaminophen 325 mg capsule
650 mg PO QID
Discharge Orders:
Discharge Patient (As Directed); Ordered 10/09/25
Ordered By: Niko Celestin
Discharge Date and Time
Discharge Date/Time: 10/11/25 11:35
Print Language: SPANISH

Documented by User: Niko Celestin DO 10/12/25 08:01
Discharge Summary
Discharge Data
Date of Admission: 10/08/25
Date of Discharge: 10/11/25
Total time spent discharging patient (in min): 31
Discharge Plan
-
Patient Disposition: Long-Term/SNF
Discharge Diagnosis/Procedures: Ambulatory Dysfunction
URI due to COVID
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
Condition: Fair
Diet: Low Cholesterol
Activity: With assistance and As tolerated
Driving Restrictions: Not until seen by your Dr
Bathing Restrictions: None
Blood Work: BMP and CBC in 5 to 7 days
Other Services: PT
Referrals:
Musa Rowland MD [Family Provider, Internal Medicine]
Additional Discharge Medication Instructions: Continue Paxlovid twice daily through the end of 10/13
Continue with Tylenol as needed for pain and Robitussin as needed for cough
Prescriptions:
New
atenolol 50 mg Tablet
50 mg PO DAILY 30 Days Qty: 30 0RF
Paxlovid 300 mg (150 mg x 2)-100 mg Tablets,Dose Pack
1 ea PO BID 4 Days Qty: 8 0RF
Continued
levothyroxine 100 MCG tablet
100 mcg PO DAILY AT 0700
aspirin 325 mg tablet
325 mg PO DAILY Qty: 1 0RF
Rx Instructions:
Take with food
docusate sodium [Colace] 100 mg capsule
100 mg PO BID Qty: 1 0RF
magnesium hydroxide [Milk of Magnesia] 400 mg/5 mL suspension
30 ml PO HS PRN (Reason: Constipation) Qty: 1 0RF
sennosides [Senokot] 8.6 mg tablet
17.2 mg PO BID Qty: 2 0RF
alprazolam 0.5 mg Tablet
0.5 mg PO DAILY
acetaminophen 325 mg capsule
650 mg PO QID
Discharge Orders:
Discharge Patient (As Directed); Ordered 10/09/25
Ordered By: Niko eClestin
Discharge Date and Time
Discharge Date/Time: 10/11/25 11:35
Print Language: SPANISH
== END 2025-10-11 11:35 | DRG 179 ==
LOC: 4 WEST ACU 15:22
PROVIDERS: Physician Assistant; ADMITTING PHYSICIAN Internal Medicine; ATTENDING PHYSICIAN Internal Medicine; EMERGENCY PHYSICIAN Emergency Medicine; FAMILY PHYSICIAN Internal Medicine
PROC: 3E02340 Introduction of Influenza Vaccine into Muscle, Percutaneous Approach (ICD-10-PCS; 2025-10-09)
DX: U07.1 COVID-19 (principal); R29.6 Repeated falls; M48.061 Spinal stenosis, lumbar region without neurogenic claudication; H35.30 Unspecified macular degeneration; R32 Unspecified urinary incontinence; I10 Essential (primary) hypertension; E78.5 Hyperlipidemia, unspecified; I44.4 Left anterior fascicular block; I25.10 Atherosclerotic heart disease of native coronary artery without angina pectoris; K21.9 Gastro-esophageal reflux disease without esophagitis; N32.81 Overactive bladder; E66.9 Obesity, unspecified; E03.9 Hypothyroidism, unspecified; F32.A Depression, unspecified; F41.9 Anxiety disorder, unspecified; G47.00 Insomnia, unspecified; E83.52 Hypercalcemia; R73.03 Prediabetes; H50.9 Unspecified strabismus; W19.XXXA Unspecified fall, initial encounter; Y93.9 Activity, unspecified; Y92.009 Unspecified place in unspecified non-institutional (private) residence as the place of occurrence of the external cause; Z60.2 Problems related to living alone; Z96.653 Presence of artificial knee joint, bilateral; Z91.81 History of falling; Z79.890 Hormone replacement therapy; Z87.891 Personal history of nicotine dependence; Z87.19 Personal history of other diseases of the digestive system; Z68.35 Body mass index [BMI] 35.0-35.9, adult; Z92.3 Personal history of irradiation; Z98.42 Cataract extraction status, left eye; Z90.711 Acquired absence of uterus with remaining cervical stump; Z86.14 Personal history of Methicillin resistant Staphylococcus aureus infection; Z86.73 Personal history of transient ischemic attack (TIA), and cerebral infarction without residual deficits; Z23 Encounter for immunization
CPT/HCPCS: 80048; 80053; 84443; 85025; 85027; 87502; 87811; 90662; 97116; 99285; G0008